=== PATIENT | female | born 1970 | race African-American/Black ===

== ENCOUNTER 2016-08-21 23:25 | Emergency (ER) | payer OTHER ==
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
[2016-08-21] MEDS ORDERED: KETOROLAC TROMETHAMINE 30 MG/ML VIAL IM ONE (23:57)
[2016-08-22] MEDS ORDERED: KETOROLAC TROMETHAMINE 30 MG/ML VIAL ONE (00:01)
[2016-08-22] MEDS ORDERED: HYDROcodone/ACETAMINOPHEN 1 EACH TABLET PO ONE (02:10)
[2016-08-22] MEDS ORDERED: HYDROcodone/ACETAMINOPHEN 1 EACH TABLET ONE (02:19)
[2016-08-22 05:20] VITALS: BP 136/72
[2016-08-22] MEDS ORDERED: HYDROmorphone HCL 1 MG/ML DISP.SYRIN IM ONE (06:49)
[2016-08-22] MEDS ORDERED: HYDROmorphone HCL 1 MG/ML DISP.SYRIN ONE (06:57)
== END 2016-08-22 04:20 | disposition home or self-care (01) ==
LOC: ER 23:25
DX: M54.5 Low back pain (principal); F17.210 Nicotine dependence, cigarettes, uncomplicated; V43.62XA Car passenger injured in collision with other type car in traffic accident, initial encounter

== ENCOUNTER 2017-08-14 22:41 | Emergency (ER) | payer OTHER ==
[2017-08-14 22:51] VITALS: BP 103/58
[2017-08-14 23:01] LABS: Urine Bilirubin Negative (NEGATIVE); Urine Ketone Negative (NEGATIVE); Urine Nitrite Negative (NEGATIVE); Urine Protein Negative (NEGATIVE); Urine Specific Gravity 1.025 SP.GR. (1.005-1.010); Urine Urobilinogen Normal (NORMAL); Urine pH 6.5 pH (5.0-7.0)
[2017-08-14 23:10] LABS: Urine Appearance Clear; Urine Bacteria TRACE; Urine Blood 5 /ul (NEGATIVE); Urine Color Yellow; Urine RBC None Seen /hpf (0-5); Urine WBC TRACE /hpf (0-5)
--- NOTE | 2017-08-14 23:22 | ERNOTE ---
ER Female HPI Stated Complaint: URINARY SYMPTOMS Presenting Symptoms: other Time Seen by Provider: 08/14/17 22:57 Source: patient Exam Limitations: no limitations Immunizations: IMMUNIZATION HX Immunizations Up to Date Yes History of Influenza Vaccine No Hx Pneumococcal Vaccination No Allergies/Adverse Reactions: Allergies tramadol HCl [From Ultram] Adverse Reaction (Severe, Verified 08/25/15 13:31) seizure Home Medications: HOME MEDICATIONS NK [No Home Medication] 08/14/17 [Last Taken Unknown] - History of Present Illness Narrative: Patient states that over the last months she has had to urinate more than usual. She denies any dysuria, no vaginal discharge, no new sexual partner, no fever. She called for advice and was told that it could be a sign of diabetes and that she needed to get evaluated so she decided to come to the ER. She has also had mild URI symptoms for a few days Timing: Present: intermittent Activities at Onset: Present: none Prior Abdominal Problems: Present: none Review of Systems - Review of Systems Constitutional: Absent: recent illness, fever EYE: Absent: vision changes ENT: Present: nose congestion, nasal drainage Respiratory: Present: cough. Absent: shortness of breath Cardiology: Absent: chest pain Gastrointestinal/Abdominal: Absent: nausea, vomiting, diarrhea, abdominal pain Genitourinary: Present: See HPI, frequency. Absent: dysuria, hematuria, discharge Musculoskeletal: Absent: back pain Skin: Absent: rash Neurological: Absent: headache - Patient's Past Medical History Patient History - Medical: Anxiety, Depression Patient History - Cardiac/Respiratory: No pertinent hx Patient History - Cancer: No Hx of Cancer Patient History - Surgical Procedures: Tubal Ligation, Other Patient History - Other: None LMP (females 10-50): nexplanon - Social History Living Situations: alone Abuse History: No History of abuse Psych History: Hx of Depression Smoking Status: Current every day smoker Have you smoked in the past 12 months: Yes Do you dip or chew tobacco: No Alcohol Use: occasionally Drug Use: none - Immunizations Immunizations Up to Date: Yes Hx Pneumococcal Vaccination: No History of Influenza Vaccine: No Physical Exam - Physical Exam General Appearance: Present: wd/wn, alert, no apparent distress, obese Eye Exam: Normal inspection: bilateral Ears, Nose, Throat: Present: normal except -, nasal congestion, normal pharynx Neck: Present: normal inspection Respiratory: Present: no respiratory distress, normal breath sounds, no accessory muscle use, lungs clear Cardiovascular/Chest: Present: regular rate, rhythm, no murmur Gastrointestinal/Abdominal: Present: nontender Back Exam: Present: no CVA tenderness Neurological Exam: Present: alert, oriented, normal mood/affect Skin Exam: Present: normal color, warm/dry ED Progress - Results and Orders Patient's Lab Results:: I have reviewed the patient's lab results. - Vital Signs Patient's Vital Signs:: I have reviewed the patient's vital signs. Vital Signs: Vital Signs 08/14/17 22:45 Temperature 36.2 C L Pulse Rate 84 Respiratory 16 Rate Blood Pressure 103/58 O2 Sat by Pulse 98 Oximetry - Progress/Reassessment Chief Complaint: Urinary Tract Problems Progress Note-Subjective: 08/14/17 23:17 discussed test results Departure Clinical Impression: Upper respiratory infection Qualifiers: URI type: unspecified viral URI Qualified Code(s): J06.9 - Acute upper respiratory infection, unspecified - Departure Disposition: Home self-care Condition: Good Instructions: Upper Respiratory Infection, Adult, [id number] Referrals: Stacy Muse FNP [[facility]] -
== END 2017-08-14 23:24 | disposition home or self-care (01) ==
LOC: ER 22:41
DX: J06.9 Acute upper respiratory infection, unspecified (principal); F17.200 Nicotine dependence, unspecified, uncomplicated